=== PATIENT | male | born 1995 | race Caucasian/White ===

== ENCOUNTER 2022-12-24 13:51 | Emergency (ER) | payer MEDICAID ==
[~2022-12-24] VITALS: Ht 195.6 cm; Wt 90.7 kg
[2022-12-24 13:59] VITALS: BP_SYST 121
--- NOTE | 2022-12-24 14:00 | NUR ---
ER at bedside examining patient.
--- NOTE | 2022-12-24 14:05 | NUR ---
PT PRESENTS TO THE ED WITH LEFT HAND SWELLING AND INFLAMMATION AROUND 2 CM CUT TO LEFT HAND KNUCKLE.
--- NOTE | 2022-12-24 14:10 | NUR ---
PT TO RADIOLOGY AMBULATES WITH STEADY GAIT.
[2022-12-24] MEDS ORDERED: CEPH-548 PO (14:36)
[2022-12-24] MEDS ORDERED: IBUP-1969 PO (14:36)
[2022-12-24] MEDS ORDERED: BACITRACIN 1 GM OINT TP ONE (14:47)
--- NOTE | 2022-12-24 14:55 | NUR ---
Patient given written and verbal discharge instructions and verbalizes understanding. ER MD discussed with patient the results and treatment provided. Patient in stable condition. ID arm band removed. Rx of CEPHALEXIN AND IBUPROFEN given. Patient educated on pain management and to follow up with PMD. Opportunity for questions provided and answered. Medication side effect fact sheet provided.
[2022-12-24 15:02] VITALS: BP_SYST 121
== END 2022-12-24 14:55 | disposition home or self-care (01) ==
LOC: SED 13:51
DX: S62.304A Unspecified fracture of fourth metacarpal bone, right hand, initial encounter for closed fracture (principal); Z79.899 Other long term (current) drug therapy; W23.0XXA Caught, crushed, jammed, or pinched between moving objects, initial encounter; Y93.89 Activity, other specified; Y92.89 Other specified places as the place of occurrence of the external cause; Y99.8 Other external cause status
CPT/HCPCS: 99283